=== PATIENT | male | born 1995 | race Caucasian/White ===

== ENCOUNTER → 2019-05-04 | Day surgery (SDC) | payer OTHER ==
[~2019-05-04] MED LIST: FENTANYL CITRATE/PF 100MCG/2 ML INJ ONE; HYOSCYAMINE 0.125 MG TAB ONE; KETAMINE HCL INJ 50 MG/ML 10 ML VIAL ONE; LIDOCAINE HCL 2% LOCAL INJ 5 ML SDV VIAL INJ ONE; MIDAZOLAM HCL 2 MG/2 ML VIAL ONE; PROPOFOL IV EMULSION 10 MG/ML 50 ML VIAL ONE
--- OUTSIDE RECORDS SUMMARY | 2019-05-04 05:59 | XMS REPORT ---
Author Author [facility] Address Unknown Phone Unavailable Care Team Providers Care Tanker Driver Name Role Phone Unavailable Unavailable Payers Payer Name Policy Type Policy Number Effective Date Expiration Date Problems This patient has no known problems. Allergies, Adverse Reactions, Alerts Allergy Name Allergy Type Status Severity Reaction(s) Onset Date Inactive Date Treating Clinician Comments No Known Allergies DA Active U 2018-07-14 00:00:00 No Known Drug Intolerances DA Active U 2009-05-10 00:00:00 No Known Intolerances DA Active U 2009-05-10 00:00:00 Medications This patient has no known medications.
[2019-05-04 09:05] VITALS: BP 132/79
--- NOTE | 2019-05-04 11:26 | Operative Report ---
DATE OF PROCEDURE: 05/04/2019 SURGEON: Roly Alberto MD PROCEDURE: Colonoscopy with biopsy. INDICATIONS FOR COLONOSCOPY: Rectal bleeding. MEDICATIONS: The patient was done under MAC, please see anesthesiologist's note. PROCEDURE IN DETAIL: With the patient in left lateral decubitus position, flexible fiberoptic Olympus colonoscope was inserted into the rectum with ease and advanced to the cecum. Prep overall was poor with large amount of retained fecal material in the colon. The mucosa overlying the cecum though was examined well and appeared to be within normal limits. The scope was then withdrawn slowly whatever was visualized. The mucosa overlying the ascending, transverse, descending, and sigmoid grossly appeared to be within normal limits. There was some patchy erythema, low-grade to moderate edema in the rectum and biopsies were obtained. The scope was retroflexed into the distal rectum. Small internal hemorrhoids were noted, none of which was actively bleeding. Two anal fissures were noted on the way out without active bleeding. The patient tolerated the procedure well. IMPRESSION: 1. Poor prep. 2. Proctitis, mild. 3. Internal hemorrhoids, none actively bleeding. 4. Anal fissures. PLAN: Follow up histology. Initiate Anucort-HC suppositories b.i.d. x10 days and then p.r.n. High-fiber, low-fat diet and align one p.o. daily. Roly Alberto MD [facility] [place] [place][id number] cc: Hugh Chaney MD
== END | disposition home or self-care (01) ==
LOC: OR 05:57
PROVIDERS: ATTEND Internal Medicine Gastroenterology
DX: K62.89 Other specified diseases of anus and rectum (principal); K62.5 Hemorrhage of anus and rectum; Z86.73 Personal history of transient ischemic attack (TIA), and cerebral infarction without residual deficits; K64.8 Other hemorrhoids; K60.2 Anal fissure, unspecified; R03.0 Elevated blood-pressure reading, without diagnosis of hypertension; Z68.39 Body mass index [BMI] 39.0-39.9, adult
CPT/HCPCS: 45380; J2001; J2250; J2704; J3010